=== PATIENT | male | born 1990 | race Caucasian/White ===

== ENCOUNTER 2018-06-17 11:45 | Emergency (ER) | payer SELFPAY ==
[2018-06-17 12:55] VITALS: BP 111/74
--- NOTE | 2018-06-17 13:27 | UC ---
Throat Pain/Nasal Gabriel HPI - HPI Summary HPI Summary: 27 y/o male presents to the urgent care c/o sore throat, dry cough w/ mild HUD[place]LESTON for the past 4 days. Pt reports hoarseness w/ +PND and nasal congestion w/ clear nasal discharge. Pt is concerned since his is at the end of her and he doesn't wants her to be sick. Pain iw/ swallowing is 2/10. Pt has not taking anything to alleviate symptoms. Pt deies fever, SOB, wheezing, chest pain, abdominal pain, N/V/D. - History of Current Complaint Chief Complaint: UCRespiratory Stated Complaint: SORE THROAT Time Seen by Provider: 06/17/18 13:21 Hx Obtained From: Patient Onset/Duration: Gradual Onset, Lasting Days - 4 days, Still Present Severity: Mild Pain Intensity: 2 Pain Scale Used: 0-10 Numeric Cough: Nonproductive Associated Signs & Symptoms: Positive: Dysphagia, Nasal Discharge - clear - Epiglottits Risk Factors Epiglottis Risk Factors: Negative - Allergies/Home Medications Allergies/Adverse Reactions: Allergies Allergy/AdvReac Type Severity Reaction Status Date / Time No Known Allergies Allergy Verified 06/17/18 12:48 Home Medications: Home Medications NK [No Home Medications Reported] 06/17/18 [History Confirmed 06/17/18] PMH/Surg Hx/FS Hx/Imm Hx Previously Healthy: Yes - Pt denies PMHX - Surgical History Surgical History: Yes Surgery Procedure, Year, and Place: TONSILLECTOMY - Family History Known Family History: Positive: Hypertension, Diabetes - Social History Occupation: Employed Full-time Lives: With Family Alcohol Use: Occasionally Substance Use Type: None Smoking Status (MU): Never Smoked Tobacco Review of Systems Constitutional: Negative Skin: Negative Eyes: Negative ENT: Sore Throat, Nasal Discharge, Sinus Congestion, Other - hoarseness Respiratory: Cough - dry Cardiovascular: Negative Gastrointestinal: Negative Genitourinary: Negative Motor: Negative Neurovascular: Negative Musculoskeletal: Negative Neurological: Headache Psychological: Negative Is Patient Immunocompromised?: No All Other Systems Reviewed And Are Negative: Yes Physical Exam - Summary Physical Exam Summary: VITAL SIGNS: Reviewed. GENERAL: Patient is a well developed and nourished male who is sitting comfortable in the examining table. Patient is not in any acute respiratory distress. HEAD AND FACE: No signs of trauma. No ecchymosis, hematomas or skull depressions. No sinus tenderness. EYES: PERRLA, EOMI x 2, No injected conjunctiva, no nystagmus. No photophobia. EARS: Hearing grossly intact. Ear canals and tympanic membranes are within normal limits. Nose: edematous and erythematous nasal mucosa w/ clear nasal discharge. MOUTH: Positive no erythema, no tonsillar enlargement. Uvula in midline. NECK: Supple, trachea is midline, Positive anterior cervical lymphadenopathy, no JVD, no carotid bruit, no c-spine tenderness, neck with full ROM. No meningeal signs, no Kernig's or brudzinskis signs. CHEST: Symmetric, no tenderness at palpation LUNGS: Clear to auscultation bilaterally. No wheezing or crackles. CVS: Regular rate and rhythm, S1 and S2 present, no murmurs or gallops appreciated. ABDOMEN: Soft, non-tender. No signs of distention. No rebound no guarding, and no masses palpated. Bowel sounds are normal. EXTREMITIES: FROM in all major joints, no edema, no cyanosis or clubbing. NEURO: Alert and oriented x 3. No acute neurological deficits. Speech is normal and follows commands. SKIN: Dry and warm Triage Information Reviewed: Yes Vital Signs: Initial Vital Signs Temp 97.9 F 06/17/18 12:49 Pulse 63 06/17/18 12:49 Resp 18 06/17/18 12:49 BP 111/74 06/17/18 12:49 Pulse Ox 100 06/17/18 12:49 Throat Pain/Nasal Course/Dx - Course Course Of Treatment: 27 y/o male presents to the urgent care c/o sore throat, dry cough w/ mild [place] for the past 4 days. Pt reports hoarseness w/ +PND and nasal congestion w/ clear nasal discharge. Pt is concerned since his is at the end of her and he doesn't wants her to be sick. Pain w/ swallowing is 2/10. Pt has not taking anything to alleviate symptoms. Pt deies fever, SOB, wheezing, chest pain, abdominal pain, N/V/D. Hx obtained. Pt w/ URI and laryngitis on examination. Rapid strep ordered: negtive. Pt Rx ibuprofen PO to alleviates symptoms. Advised on hand washing. Pt advised to rest, increase fluid intake, eat well and avoid strenuous exercise. If symptoms do not improve or worsen advised to return to the urgent care or f/u with her PCP for further evaluation and treatment. Pt understood and agreed with plan of care. - Differential Dx/Diagnosis Differential Diagnosis/HQI/PQRI: Laryngitis, Mononucleosis, Pharyngitis, Tonsillitis, URI, Other Provider Diagnoses: 1- Acute laryngitis. 2- URI Discharge - Sign-Out/Discharge Documenting (check all that apply): Patient Departure - D/C home All imaging exams completed and their final reports reviewed: No Studies - Discharge Plan Condition: Stable Disposition: HOME Patient Education Materials: Laryngitis (ED), Upper Respiratory Infection (ED) Referrals: Willian Solorio PA [Primary Care Provider] - 2 Days Additional Instructions: 1-Please take ibuprofen PO q6-8hrs prn as instructed after meals to alleviate pain and swelling. Increase fluid intake, eat well, rest and avoid strenuous exercise. Encourage hand washing to avoid spreading to your . 2-If symptoms do not improve or worsen please return to the urgent care or f/u with your PCP in 3 days for further evaluation and treatment. - Billing Disposition and Condition Condition: STABLE Disposition: Home
== END 2018-06-17 13:44 | disposition home or self-care (01) ==
LOC: UCCORT 11:45
DX: J06.9 Acute upper respiratory infection, unspecified (principal); J04.0 Acute laryngitis
CPT/HCPCS: 87651; 99211; G0463